=== PATIENT | male | born 1965 | race Caucasian/White ===

== ENCOUNTER 2019-01-11 06:46 | Inpatient (IN) ==
--- NOTE | 2019-01-10 14:54 | Anesthesia Evaluation PreOp ---
Date of Encounter: 01/11/19 Time of Encounter: 07:59 - Past History Planned Operation: CABG Cardiac History: Angina, HTN, Hyperlipidemia, Cardiac Stent (x2), Other (CAD) Pulmonary History: Denies Any Significant HX DEMURRAGE CLERK History: Denies Any Significant HX Other Medical History: Denies Any Significant HX Anesthesia History: No Prior Anesthetic Complications, Past Anesthesia (right knee and shoulder) Alcohol Use: occasionally, recent Drug use: none Medications and Allergies Atorvastatin Calcium [Lipitor] 80 mg PO HS #30 tab 07/14/16 [Rx] Lisinopril [Zestril] 40 mg PO DAILY 07/14/16 [History] Metoprolol Succinate [Toprol Xl] 25 mg PO DAILY 08/05/17 [History] Aspirin 81 mg PO DAILY #30 tab.chew 01/03/19 [Rx] hydroCHLOROthiazide [Hydrochlorothiazide] 25 mg PO DAILY 01/03/19 [History] Allergy/AdvReac Type Severity Reaction Status Date / Time codeine AdvReac Nausea Verified 08/05/17 10:37 - Meds/Allergy Pre-op Review Medications Reviewed: Yes Allergies Reviewed: Yes Beta Blockers on Current Med List: Yes If Beta Blockers taken, Date/Time (Last Dose taken): today 0545 Anesthesia Results - Labs Laboratory Tests 01/02/19 01/02/19 13:11 13:11 Hgb 14.9 Hct 42.9 Plt Count 243 Sodium 137 Potassium 3.7 BUN 17 Creatinine 1.15 - Imaging Additional studies: cath: Indications: Abnormal Test - Stress Other- Abnormal Test- Stress Impressions: There is severe 3 vessel disease seen. There is a previous stent in mid RCA with in-stent stenosis that was not intervened on. The left ventricle is Normal and has normal contractility EF 55%. Recommendations: Optimal medical therapy of patient's disease. Aggressive risk factor modification. Suggest patient have elective coronary artery bypass surgery. LV Ventriculography Ejection Method: LV Gram Ejection Fraction: 55% Wall Motion: RYAN Anterobasal Normal Anterolateral Normal Apical: Normal Inferoapical Normal Inferobasal Normal Coronary Dominance: right Lesion Findings/Interventions * Left Main Coronary Artery The LMCA is angiographically free of disease. * Left Anterior Descending There is a 60% stenosis in the Proximal LAD. The lesion has a BETSY flow of 3. There is a 70% stenosis in the Mid LAD. The lesion has a BETSY flow of 3. There is a 80-90% stenosis in the 1st Diagonal. The lesion has a BETSY flow of 3. Distal LAD with severe disease and right to left collaterals * Circumflex There is a 60-70% stenosis in the Proximal Circumflex. The lesion has a BETSY flow of 3. * Right Coronary Artery There is a 70% stenosis in the Mid RCA. The lesion has a BETSY flow of 3. There is a 99% stenosis in the Right PDA. The lesion has a BETSY flow of 2. Complications: None, None, None Contrast: Isovue 44ml Procedure Summary: After informed consent was obtained, patient was brought back to the cardiac catheterization laboratory, prepped and draped in the usual sterile fashion. Timeout was observed verifying patient and procedure. The patient was given moderate IV sedation (see medication list) by a dedicated nurse under my [id number] supervision using physiologic monitoring for a total intra service time of 24 minutes. Local anesthesia was achieved. Using standard technique, arterial access was obtained and sheath placed. Under fluoroscopic guidance, over guidewire, catheters were advanced and engaged the coronary ostia and coronary angiograms obtained in multiple views. Catheter was placed across the aortic valve and pressures were obtained. Equipment was removed, procedure concluded and patient was discharged out of the labor relations director in stable condition. Closure Device: Manual Compression Procedural Medications Time Medication Dose Units Method Given By 09:14 AM Oxygen 2 L/min nasal cannula Mando Unger RN 09:14 AM Versed 2 mg Intravenous Mando Unger RN 09:14 AM Fentanyl 50 mcg Intravenous Mando Unger RN 09:21 AM Lidocaine 2% 0.5 ml Subcutaneous Lalo Mauricio MD, FACC 09:21 AM Versed 1 mg Intravenous Mando Unger RN 09:21 AM Fentanyl 25 mcg Intravenous Mando Unger RN 09:28 AM Heparin 4000 units Nitroglycerin 200 mcg Verapamil 2.5 mg Intraarterial Lalo Mauricio MD, FACC Hemodynamics: Pressures Site Systolic/ A Wave Diastolic/ V Wave End Diastolic/ Mean HR LV 81 13 21 88 LV 112 18 22 134 AO 89 23 49 85 AO 110 90 99 80 AO 109 85 97 79 Anesthesia Exam Selected Entries 01/11/19 07:15 Temperature 97.6 F Pulse Rate 86 Respiratory Rate 18 Blood Pressure 154/85 O2 Sat by Pulse Oximetry 96 Weight: 103kg NPO (# of Hours): 8 - HEENT Pupil (Motor): EOMI Mallampati: II Teeth: Normal Oral Opening: Greater than 3 - DEMURRAGE CLERK LOC: Oriented DEMURRAGE CLERK Motor: Normal RUE, Normal LUE, Normal RLE, Normal LLE, Normal Face DEMURRAGE CLERK Sensory: Normal: RUE, LUE, RLE, LLE, Face - Cardiac Rhythm: Regular Murmur: None - Pulmonary Breath Sounds: bilateral Clear Respiratory Effort: Symmetrical Anesthesia Assess/Plan ASA Score: 3 Level of consciousness: Cooperative, Oriented Anesthetic Plan: General Monitoring Plan: Standard Monitors, A-Line, PAC, ALFIE Recovery Plan: ICU (agrees to GA, lines, ALFIE and blood products)
[~2019-01-11 06:46] MED LIST: *HR* Etomidate 20 MG/10 ML AMPUL IVP ONE; *HR* FentaNYL (PF) 1,000 MCG/20 ML VIAL ONE; *HR* Midazolam HCl 5 MG/5 ML VIAL IVP ONE; *HR* PHENYLEPHRINE 1,000 MCG/10 ML SYRINGE IVP ONE; *HR* Rocuronium Bromide 50 MG/5 ML VIAL ONE; Calcium Gluconate 1,000 MG/10 ML VIAL ONE; Famotidine 20 MG/2 ML VIAL ONE; NiCARdipine 2.5 MG/10 ML Syringe IVPB ONE; Nitroglycerin 25 MG/250 ML INFUS..BTL IVC ONE; Protamine Sulfate 250 MG/25 ML VIAL IVP ONE; Tranexamic Acid 1,000 MG/10 ML VIAL ONE
[2019-01-11] MEDS ORDERED: CeFAZolin Syr 2,000MG/20 ML 2,000 MG/20 ML SYRINGE IVPB ONE (07:02)
[2019-01-11] MEDS ORDERED: Balanced Salt Irrig Soln. IR ONE (07:13)
--- NOTE | 2019-01-11 07:14 | History & Physical Report ---
Date of Encounter: 01/11/19 Time of Encounter: 07:12 24 Hour HP Update - Instructions Instructions: If the History and Physical is less than 30 days old and was completed prior to A.M. admission and or procedure and has NOT been updated on calendar day of procedure please complete this update prior to performing procedure. - Update Patient reports changes in Medical Condition: No Changes in examination, assessment, or condition: No Changes in Medication: No Preop tests/diagnostics Reviewed: Yes Pre-Op MRSA Screen: Negative Surgery Remains Indicated: Yes Consent for Planned Operative Procedure(s) Verified: Yes - Pre-Operative Checklist Preoperative Checklist Indicated: No Prophylactic Antibiotic Ordered: Yes Home Medications Include Beta Wing: Yes Beta Wing Taken Today (Day of Surgery): Yes Beta Wing Taken Yesterday (Day Prior to Surgery): Yes Is VTE Prophylaxis Indicated?: NO
[2019-01-11] MEDS ORDERED: Ringers Solution, Lactated 1,000 ML IVC SCH (07:15)
[2019-01-11] MEDS ORDERED: Chlorhexidine Rinse 15 ML MOUTHWASH MM ONE (07:30)
[2019-01-11] MEDS ORDERED: Norepinephrine 4 MG in D5% in Water 250 ML IVC PRN (08:15)
[2019-01-11] MEDS ORDERED: Heparin 15,000 UNIT in 0.9 % Sodium Chloride 500 ML IV ONE (08:15)
[2019-01-11] MEDS ORDERED: Dextrose 50 % in Water (Vial) 30 ML, Sodium Bicarbonate 20 MEQ, Potassium Chloride 15 M... TH ONE (08:15)
[2019-01-11] MEDS ORDERED: Dextrose 50 % in Water (Vial) 30 ML, Sodium Bicarbonate 20 MEQ, Lidocaine 1% 5 ML, Insu... TH ONE ×3 (08:15)
[2019-01-11] MEDS ORDERED: Insulin Human Regular 100 UNIT in 0.9 % Sodium Chloride 100 ML IV PRN (08:15)
[2019-01-11 08:40] LABS: ABG Base Excess 0 mEq/L (-2 to 3); ABG Chloride 102 mEq/L (98-107); ABG Glucose 132 mg/dL (60-95); ABG HCO3 26 mEq/L (21-27); ABG Ionized Calcium 1.22 mmol/L (1.15-1.35); ABG Oxygen Saturation 99 % (95-98); ABG PCO2 46 mmHg (35-45); ABG PH 7.36 pH Units (7.32-7.45); ABG PO2 156 mmHg (85-104); ABG TCO2 27 mEq/L (20-26)
--- NOTE | 2019-01-11 09:33 | Anesthesia Procedures ---
Date of Encounter: 01/11/19 Time of Encounter: 08:30 Procedures: Anesthesia - Arterial Line Consent obtained: written consent Time out performed: Yes Sedation: Versed (mg): 2 Sedation: Fentanyl (mcg): 100 Supplemental Oxygen via Nasal Cannula (L/min): 2 Local Anesthetic: Lidocaine 1% Amount of Anesthetic used (mls): 1 Size (Gauge): 20 Length (inches): 5 Technique Used: sterile prep, guide wire technique, direct puncture technique Post-Procedure: line taped into place, dry sterile dressing placed Patient tolerated procedure: well, no complications Complications: none Site: Radial L - Central Line Placement Right IJ Consent obtained: written consent Time out performed: Yes Patient placed on monitor/pulse ox: Yes prep: mask, gown, gloves Central line prep: Chlorhexidine scrub, sterile drapes applied Ultrasound used for placement: Yes Technique: Seldinger Lumen Inserted: Introducer Size / Length: 9 Fr / 10 cm Post procedure: sutured in place, good blood return, all ports aspirated, flushed, capped, sterile dressing applied Patient tolerated procedure: well, no complications Complications: none Comments: introducer placed easily. [place] placed easily without arrythmias, wedge approx 58cm
[2019-01-11] MEDS ORDERED: Tranexamic Acid 1,000 MG/10 ML VIAL ONE (09:54)
[2019-01-11] MEDS ORDERED: *HR* Heparin 10,000 UNIT/10 ML VIAL IV ONE (10:10)
[2019-01-11] MEDS ORDERED: Albumin Human 25% 25 GM/100 ML IV.SOLN IV ONE (10:10)
[2019-01-11] MEDS ORDERED: *HR* Phenylephrine 10 MG/ML VIAL IVC ONE (10:10)
[2019-01-11] MEDS ORDERED: Lidocaine 2% Syringe 100 MG/5 ML IV ONE (10:10)
[2019-01-11] MEDS ORDERED: Mannitol 25% vial 12.5 GM/50 ML VIAL IVP ONE (10:10)
[2019-01-11] MEDS ORDERED: *HR* Magnesium Sulfate 2 GM/50 ML PIGGYBACK IVPB ONE (10:10)
[2019-01-11] MEDS ORDERED: Tranexamic Acid 1,000 MG/10 ML VIAL IVPB ONE (10:10)
[2019-01-11 10:28] LABS: ABG Base Excess -6 mEq/L (-2 to 3); ABG Chloride 111 mEq/L (98-107); ABG Glucose 213 mg/dL (60-95); ABG HCO3 19 mEq/L (21-27); ABG Oxygen Saturation 99 % (95-98); ABG PCO2 38 mmHg (35-45); ABG PH 7.32 pH Units (7.32-7.45); ABG PO2 148 mmHg (85-104); ABG TCO2 21 mEq/L (20-26)
[2019-01-11 10:37] LABS: ABG Base Excess 0 mEq/L (-2 to 3); ABG Chloride 100 mEq/L (98-107); ABG Glucose 214 mg/dL (60-95); ABG HCO3 26 mEq/L (21-27); ABG Ionized Calcium 1.04 mmol/L (1.15-1.35); ABG PCO2 43 mmHg (35-45); ABG PH 7.38 pH Units (7.32-7.45); ABG PO2 > 630 mmHg (85-104); ABG TCO2 27 mEq/L (20-26)
[2019-01-11] MEDS ORDERED: *HR* Rocuronium Bromide 50 MG/5 ML VIAL ONE ×2 (10:55→12:31)
[2019-01-11 11:03] LABS: ABG Base Excess -1 mEq/L (-2 to 3); ABG Chloride 99 mEq/L (98-107); ABG Glucose 206 mg/dL (60-95); ABG HCO3 25 mEq/L (21-27); ABG Ionized Calcium 1.08 mmol/L (1.15-1.35); ABG Oxygen Saturation 100 % (95-98); ABG PCO2 42 mmHg (35-45); ABG PH 7.38 pH Units (7.32-7.45); ABG PO2 553 mmHg (85-104); ABG TCO2 26 mEq/L (20-26)
[2019-01-11 11:43] LABS: ABG Base Excess 1 mEq/L (-2 to 3); ABG Chloride 100 mEq/L (98-107); ABG Glucose 155 mg/dL (60-95); ABG HCO3 25 mEq/L (21-27); ABG Ionized Calcium 1.05 mmol/L (1.15-1.35); ABG Oxygen Saturation 100 % (95-98); ABG PCO2 39 mmHg (35-45); ABG PH 7.42 pH Units (7.32-7.45); ABG PO2 578 mmHg (85-104); ABG TCO2 26 mEq/L (20-26)
[2019-01-11] MEDS ORDERED: Albumin Human 5% 50.0 GM/1,000 ML VIAL ONE (12:06)
[2019-01-11] MEDS ORDERED: *HR* PHENYLEPHRINE 1,000 MCG/10 ML SYRINGE IVP ONE (12:07)
[2019-01-11 12:22] LABS: ABG Base Excess -4 mEq/L (-2 to 3); ABG Chloride 103 mEq/L (98-107); ABG Glucose 138 mg/dL (60-95); ABG HCO3 22 mEq/L (21-27); ABG Ionized Calcium 1.28 mmol/L (1.15-1.35); ABG Oxygen Saturation 98 % (95-98); ABG PCO2 38 mmHg (35-45); ABG PH 7.36 pH Units (7.32-7.45); ABG PO2 103 mmHg (85-104); ABG TCO2 23 mEq/L (20-26)
[2019-01-11] MEDS ORDERED: *HR* Midazolam HCl 5 MG/5 ML VIAL IVP ONE (12:31)
[2019-01-11] MEDS ORDERED: *HR* FentaNYL (PF) 250 MCG/5 ML VIAL ONE (12:31)
--- NOTE | 2019-01-11 13:24 | Operative Note ---
Date of procedure: 01/11/19 Pre-op diagnosis: CAD Post-op diagnosis: same Procedure: 1. CABG5 (PANCHAL to D1, SVG to LAD, SVG to OM1, sequential SVG to PDA and PLV). 2. PDA endarterectomy. 3. Endoscopic vein harvesting, greater saphenous vein from left lower extremity. Implants: None. Complications: None. Anesthesia: GETA Surgeon: Walker Valenzuela Was there an assistant account executive present: Yes Resume Specialist: Rock Li Estimated blood loss (cc): 500 Specimen: PDA plaque Condition: stable Disposition: ICU Procedure in Detail: INDICATIONS FOR OPERATION: The patient is a 53 year old hypertensive man with known CAD and hypercholesterolemia. His cardiac history dates back to 07/14/2016 at which time he underwent cardiac catheterization with RCA PCI. At that time he had 2 stents placed in the mid RCA for a chronic total occlusion of this vessel. He did well until the last several weeks when he began experiencing exertional, nonradiating substernal chest discomfort and generalized fatigue. He saw Dr. Jamshid Cherry for his annual cardiac evaluation and was recommended for further cardiac workup. A nuclear stress test revealed exercise ECG findings consistent with ischemia, but no perfusion defect was noted on the nuclear portion. A transthoracic echocardiogram revealed an LVEF 65% with mild concentric left ventricular hypertrophy. No significant valvular dysfunction was noted. Cardi ac catheterization performed today revealed severe 3 vessel CAD and an LVEF 60%. In particular, the patient has a 70-80% proximal LAD lesion, an 80% mid LAD lesion, and severe diffuse disease in his distal LAD. The patient also has an 80-90% proximal D1 lesion, a 70% proximal LCx lesion, a 70% mid RCA in-stent restenosis, and a severely diseased mid PDA. The patient has been recommended for CABG. FINDINGS AT OPERATION: The aorta was of normal caliber and slightly thickened. No overt calcification was noted. The coronary arteries measure proximal 1.5-2 mm in diameter and had moderate to severe distal disease, particularly the LAD and PDA. The greater saphenous vein was harvested endoscopically from the left lower extremity from the mid calf to the groin and was of good quality. The total bypass time was 110 minutes, cross-clamp time 62 minutes, intentional hypothermia of 35 degrees centigrade. DESCRIPTION OF OPERATION: After obtaining informed operative consent from the patient, he was taken to the operating room where a satisfactory general endotracheal anesthetic was induced. Appropriate monitor lines were placed, and the patient's chest, abdomen, and lower extremities were prepped and draped in a sterile fashion. The greater saphenous vein was initially sought for in the right lower extremity however no usable vein could be identified. The greater saphenous vein was then harvested endoscopically from the left lower extremity from the mid calf to the groin. The vein was removed, distended, and found to be of good quality. The simultaneous tissue and skin edges were reapproximated running Vicryl sutures. Simultaneously, a standard median sternotomy incision was made and the sternum divided. The PANCHAL was taken down from its bed and side branches divided between hemoclips. The sternum was and the pericardium opened and reflected laterally. The patient was prepared for cannulation by placing pursestring sutures the distal ascending aorta, mid-ascending ascending aorta, and right atrial appendage. The patient was heparinized and when the ACT was greater than 200 seconds, distal ascending aorta was cannulated followed by placement of a dual stage venous cannula through the right atrial appendage and into the inferior vena cava. A stab-in antegrade metabolic cannula was placed in the mid-ascending aorta. The patient was placed on bypass and the temperature allowed to drift to 35 degrees centigrade. The distal targets were identified and the LAD was noted to have severe calcification proximally and severe calcification and disease distally. The mid section was patent however had limited distribution. The D1 branch was a larger and less diseased vessel and it was determined that the elevated PANCHAL was be placed to the D1 branch. The aorta was crossclamped and the patient received 700 mL of cold antegrade crystalloid cardioplegia through the aortic root and the patient's heart obtained rapid diastolic arrest. The LAD was opened in the midportion and the vein was anastomosed in an end-to-side fashion using running 7-0 Prolene suture. The anastomosis found to be hemostatic. This processes and repeated for the RPLB. The PDA was opened with a Hamilton blade and a large amount of plaque was encountered. This vessel required endarterectomy in order to establish a patent distal lumen. The endarterectomy specimen tapered nicely both proximally and distally and a 1 mm Proplast in both directions without encountering obstructions. The vein was opened in a longitudinal fashion so the [id number] anastomosis could be completed using running 7-0 Prolene suture. The anastomosis found to be hemostatic and the patient received a notice of cold antegrade crystalloid cardioplegia through the aortic root. The OM1 branch was opened with a Hamilton blade and the vein was anastomosed in an end-to-side fashion using running 7-0 Prolene suture. The anastomosis found to be hemostatic. The D1 branch was opened with a Hamilton blade and the PANCHAL was anastomosed in end-to-side fashion using running 7-0 Prolene suture. The anastomosis was found to be hemostatic and the mammary pedicle was tacked to the epicardium using interrupted 5-0 silk suture. Rewarming was begun during this anastomosis. Aortic cross-clamp was released and the heart distended. The veins were measured and cut appropriate lengths. A partial occluding clamps placed across the mid ascending aorta and the antegrade cardioplegia cannula was removed. Two additional aortotomy sites were made 11 blade, and all 3 sites were enlarged with a 4 mm punch. The veins were anastomosed in an end-to-side fashion to the aorta using a running 5-0 Prolene suture. The vein grafts were occluded with bulldog clamps and de-aired the 25-gauge needle prior to removing the partial occluding clamp. The proximal and distal anastomoses were found to be hemostatic and the proximal anastomoses were marked with radiopaque loops. Two right ventricular temporary cardiac pacing lesion placed, and 3 chest suture placed, 2 in the mediastinum once the left pleural space. During rewarming the patient's heart regained normal sinus rhythm spontaneously. When the patient's systemic temperature reached 36 degrees centigrade he was ventilated and received volume. He was weaned from bypass required no inotropic support. Protamine was administered and the aortic and venous cannulae were removed. The pursestring sutures were secured. The pericardium was loosely approximated in midline using interrupted 0 silk suture and the sternum was reapproximated using double sternal wires. The pectoralis major fascia, rectus abdominis fascia, subcutaneous tissue, and skin edges were reapproximated running Vicryl sutures. Sterile dressings were applied. The patient was transferred to the ICU in satisfactory postoperative condition. There were no intraoperative complications, and the instrument and sponge count were correct at end of operation. The needle count was off by one 7-0 Prolene needle and a chest x-ray was performed. This revealed no evidence of retained objects. - Open Heart Detail SHERRI (Internal Mammary Artery) Usage: Yes Cardiopulmonary Bypass Time (mins): 110 Aortic Cross Clamp Time (mins): 62 Intentional Hypothermia Temperature (C.): 35
[2019-01-11] MEDS ORDERED: Calcium Gluconate 1gm/50mL 1 GM/50 ML BAG IVPB PRN (13:25)
[2019-01-11] MEDS ORDERED: Acetaminophen 325 MG TABLET PO PRN (13:25)
[2019-01-11] MEDS ORDERED: Naloxone 0.4 MG/ML INJ IVP PRN (13:25)
[2019-01-11] MEDS ORDERED: Insulin Regular, Human 100 UNIT/ML IV PRN (13:25)
[2019-01-11] MEDS ORDERED: Ondansetron 4 MG/2 ML VIAL IVP PRN (13:25)
[2019-01-11] MEDS ORDERED: Acetaminophen 650 MG RECTAL SUPP RC PRN (13:25)
[2019-01-11] MEDS ORDERED: Potassium Chloride 40 MEQ/200 ML BAG IVPB PRN (13:25)
[2019-01-11] MEDS ORDERED: *HR* Dextrose 50 % in Water (Syg) 50 ML SYRINGE IVP PRN (13:25)
[2019-01-11 13:28] LABS: ABG Base Excess -1 mEq/L (-2 to 3); ABG HCO3 24 mEq/L (21-27); ABG Oxygen Saturation 100 % (95-98); ABG PCO2 42 mmHg (35-45); ABG PH 7.37 pH Units (7.32-7.45); ABG PO2 194 mmHg (85-104); ABG TCO2 26 mEq/L (20-26); Blood Gas Modality VC; Blood Gas PEEP 5 cm H2O; Blood Gas VT 600 cc
[2019-01-11] MEDS ORDERED: Insulin Human Regular 100 UNIT in 0.9 % Sodium Chloride 100 ML IVC SCH (13:30)
[2019-01-11] MEDS ORDERED: Norepinephrine 4 MG in D5% in Water 250 ML IVC SCH (13:30)
[2019-01-11] MEDS ORDERED: 0.9 % Sodium Chloride w KCl 20 MEQ/1,000 ML MLS IVC SCH (13:30)
[2019-01-11 13:41] LABS: Basophils % 0.2 %; Eosinophils % 0.7 %; Hematocrit 31.2 % (37.5-50.1); Immature Granulocytes % 0.9 % (0-4); Lymphocytes # 2.9 K/mcL (0.6-4.6); Lymphocytes % 14.1 %; Mean Corpuscular HGB Conc 35.3 g/dL (31.6-35.5); Mean Corpuscular Hemoglobin 31.6 pg (28.0-33.3); Mean Corpuscular Volume 89.7 fL (83.0-100.0); Mean Platelet Volume 9.2 fL (9.4-12.4); Monocytes # 1.1 K/mcL (0.0-1.3); Monocytes % 5.6 %; Neutrophils # 15.9 K/mcL (1.6-8.9); Platelet Count 142 K/mcL (140-400); Red Blood Count 3.48 M/mcL (4.19-5.50); Red Cell Distribution Width 11.8 % (11.5-14.5); Segmented Neutrophils % 78.5 %
[2019-01-11 13:43] LABS: Eosinophils # 0.1 K/mcL (0.0-0.6); White Blood Count 20.3 K/mcL (4.3-11.1)
[2019-01-11] MEDS ORDERED: Pantoprazole 40 MG VIAL IVP SCH (13:45)
[2019-01-11 13:53] LABS: INR 1.3
[2019-01-11 13:56] LABS: Activated Partial Thrombo Time 32.7 Seconds (26.0-36.0); BUN/Creatinine Ratio 15 (6-26); Blood Urea Nitrogen 16 mg/dL (6-20); Calcium 8.8 mg/dL (8.6-10.3); Carbon Dioxide 26 mEq/L (23-29); Chloride 105 mEq/L (98-107); Glucose 112 mg/dL (70-105); Magnesium 2.6 mg/dL (1.6-2.6); Osmolality,Calculated 292 (280-300); Potassium 3.8 mEq/L (3.5-5.1); Sodium 140 mEq/L (136-145); eGFR For African Americans > 60 (> 60); eGFR For Non-African Americans > 60 (> 60)
[2019-01-11 13:59] LABS: Prothrombin Time 14.9 Seconds (9.4-12.1)
[2019-01-11] MEDS: *HR* FentaNYL (PF) 100 MCG/2 ML VIAL IVP PRN ×2 (14:34→19:46)
[2019-01-11] MEDS: Nitroglycerin 25 MG/250 ML INFUS..BTL IVC SCH ×2 (14:38→23:12)
--- NOTE | 2019-01-11 14:50 | Electrocardiograph Report ---
[place] [address] Test Date: 2019-01-11 Pat Name: Guillermo Varghese Department: 109 Room: 02 Gender: M Admin Dir: MINE : 1965 Requested By: Marga Valenzuela Order Number: [id number] Reading MD: Jamshid Cherry Measurements Intervals [place] Rate: 69 P: 13 FL: 185 QRS: 17 QRSD: 96 T: 33 QT: 373 QTc: 392 Interpretive Statements SINUS RHYTHM PROBABLE INFERIOR MYOCARDIAL INFARCTION, PROBABLY OLD Electronically Signed On 01-11-2019 14:49:15 EDT by Jamshid Cherry
[2019-01-11] MEDS: *HR* OxyCODONE/APAP 5/325 TABLET PO PRN ×2 (14:54→21:58)
[2019-01-11] MEDS: niCARdipine 20 MG in 0.9 % Sodium Chloride 192 ML IVC SCH ×3 (14:55→19:47)
[2019-01-11] MEDS: Chlorhexidine Rinse 15 ML MOUTHWASH MM SCH ×2 (14:55→19:47)
[2019-01-11] MEDS ORDERED: 0.9 % Sodium Chloride 250 ML ONE (15:45)
[2019-01-11] MEDS: Ketorolac 15 MG/ML VIAL IVP SCH ×2 (16:16→23:12)
[2019-01-11] MEDS: Metoclopramide 10 MG/2 ML VIAL IVP SCH ×2 (16:16→23:12)
[2019-01-11 16:27] LABS: ABG Base Excess -2 mEq/L (-2 to 3); ABG HCO3 24 mEq/L (21-27); ABG Oxygen Saturation 98 % (95-98); ABG PCO2 45 mmHg (35-45); ABG PH 7.34 pH Units (7.32-7.45); ABG PO2 109 mmHg (85-104); ABG TCO2 26 mEq/L (20-26); Blood Gas Modality CPAP/PS; Blood Gas PEEP 5 cm H2O
[2019-01-11 17:57] LABS: ABG Base Excess -1 mEq/L (-2 to 3); ABG HCO3 24 mEq/L (21-27); ABG Oxygen Saturation 95 % (95-98); ABG PCO2 42 mmHg (35-45); ABG PH 7.37 pH Units (7.32-7.45); ABG PO2 78 mmHg (85-104); ABG TCO2 26 mEq/L (20-26)
[2019-01-12] MEDS: niCARdipine 20 MG in 0.9 % Sodium Chloride 192 ML IVC SCH ×2 (00:50→02:40)
[2019-01-12] MEDS: Nitroglycerin 25 MG/250 ML INFUS..BTL IVC SCH (02:41)
[2019-01-12] MEDS: *HR* OxyCODONE/APAP 5/325 TABLET PO PRN ×4 (03:08→21:07)
[2019-01-12 03:25] LABS: Basophils % 0.3 %; Eosinophils % 0.1 %; Hematocrit 27.4 % (37.5-50.1); Immature Granulocytes % 0.5 % (0-4); Lymphocytes # 1.1 K/mcL (0.6-4.6); Lymphocytes % 10.7 %; Mean Corpuscular HGB Conc 34.3 g/dL (31.6-35.5); Mean Corpuscular Hemoglobin 31.6 pg (28.0-33.3); Mean Corpuscular Volume 92.3 fL (83.0-100.0); Mean Platelet Volume 9.3 fL (9.4-12.4); Monocytes # 1.1 K/mcL (0.0-1.3); Monocytes % 10.6 %; Neutrophils # 7.8 K/mcL (1.6-8.9); Platelet Count 115 K/mcL (140-400); Red Blood Count 2.97 M/mcL (4.19-5.50); Segmented Neutrophils % 77.8 %
[2019-01-12 03:26] LABS: Hemoglobin 9.4 g/dL (12.9-16.9)
[2019-01-12 03:33] LABS: INR 1.2; Prothrombin Time 13.2 Seconds (9.4-12.1)
[2019-01-12 03:35] LABS: Activated Partial Thrombo Time 28.9 Seconds (26.0-36.0)
[2019-01-12 03:44] LABS: BUN/Creatinine Ratio 14 (6-26); Blood Urea Nitrogen 17 mg/dL (6-20); Carbon Dioxide 23 mEq/L (23-29); Chloride 106 mEq/L (98-107); Glucose 118 mg/dL (70-105); Osmolality,Calculated 283 (280-300); Potassium 4.2 mEq/L (3.5-5.1); Sodium 135 mEq/L (136-145); eGFR For African Americans > 60 (> 60); eGFR For Non-African Americans > 60 (> 60)
[2019-01-12] MEDS: Ketorolac 15 MG/ML VIAL IVP SCH ×4 (05:09→23:32)
[2019-01-12] MEDS: Metoclopramide 10 MG/2 ML VIAL IVP SCH ×3 (05:10→23:32)
[2019-01-12] MEDS: *HR* FentaNYL (PF) 100 MCG/2 ML VIAL IVP PRN (05:27)
[2019-01-12] MEDS ORDERED: Furosemide 20 MG TABLET PO SCH (06:00)
--- NOTE | 2019-01-12 06:50 | Cardiothoracic Progress Note ---
Date of Encounter: 01/12/19 Time of Encounter: 06:45 - Assessment and plan (1) CAD (coronary artery disease) Current Visit: No Status: Acute The patient remained hemodynamic stable overnight. He is currently extubated and breathing comfortably. He was able to sit in a chair last night and again this morning without difficulty. The arterial line, Rodriguez catheter, and [place]- [place] catheter be removed. The patient be transferred to the stepdown unit w hen a bed is available. The assessment and plan as outlined above was discussed with the patient and/or family members who expressed understanding and agreement. All questions were answered. Qualifiers: Coronary Disease-Associated Artery/Lesion type: [place] artery [place] vs. transplanted heart: [place] heart Associated angina: with stable angina Qualified Code(s): I25.118 - Atherosclerotic heart disease of [place] coronary artery with other forms of angina pectoris - Subjective Procedure(s) Performed: POD#1 S/P CABG5, PDA endarterectomy Interval history: The patient remained hemodynamically stable overnight. He was extubated yesterday afternoon and is breathing comfortably. He is sitting in a chair and has no complaints. Vital Signs, Last 4 Hours Pulse Resp BP Pulse Ox 01/12/19 06:00 90 16 137/61 97 01/12/19 05:00 88 14 126/57 97 01/12/19 04:49 14 97 01/12/19 04:00 88 14 116/50 96 01/12/19 03:02 88 01/12/19 03:00 88 12 122/54 96 Oxgyen Flow Rate Oxygen Flow Rate (LPM) 2 Clinical Data, last 8 Hours Output, Chest Tube Drainage 10 Amount [#1] Output, Chest Tube Drainage 20 Amount [#1] Output, Chest Tube Drainage 0 Amount [#1] Output, Chest Tube Drainage 25 Amount [#1] Output, Chest Tube Drainage 25 Amount [#1] Output, Chest Tube Drainage 20 Amount [#1] Output, Chest Tube Drainage 20 Amount [#1] Output, Chest Tube Drainage 40 Amount [#1] Output, Chest Tube Drainage 0 Amount [#2] Output, Chest Tube Drainage 0 Amount [#2] Output, Chest Tube Drainage 0 Amount [#2] Output, Chest Tube Drainage 15 Amount [#2] Output, Chest Tube Drainage 0 Amount [#2] Output, Chest Tube Drainage 0 Amount [#2] Output, Chest Tube Drainage 0 Amount [#2] Output, Chest Tube Drainage 15 Amount [#2] Weight 01/10/19 01/11/19 01/12/19 23:59 23:59 23:59 Weight 103.419 kg - Physical Examination General: Conversant, No Apparent Distress Neck: No JVD, Normal carotid pulses Cardiac: Reg Rate and Rhythm, Normal S1 and S2, No Murmur Incision: No signs of infection, Dry/intact dressing Sternum: Stable Chest tubes: Minimal drainage, Other (No air leak) Pacing Wires: In place Lungs: Normal Breath Sounds, No Wheeze, Rales, Rhonchi Neuro: Alert and responsive, No focal deficits noted Vascular: Normal capillary refill Extremities: No Clubbing, No Cyanosis, No Edema, Normal Pulses - Labs 01/12/19 03:15 01/12/19 03:15 Lab Results, Last 24 hours 01/11/19 01/11/19 01/11/19 13:25 13:25 13:25 WBC 20.3 H Hgb 11.0 L Hct 31.2 L Plt Count 142 INR 1.3 APTT 32.7 Sodium 140 Potassium 3.8 Chloride 105 Carbon Dioxide 26 BUN 16 Creatinine 1.10 Glucose 112 H Calcium 8.8 Magnesium 2.6 01/12/19 01/12/19 01/12/19 03:15 03:15 03:15 WBC 10.0 D Hgb 9.4 L D Hct 27.4 L Plt Count 115 L INR 1.2 APTT 28.9 Sodium 135 L Potassium 4.2 Chloride 106 Carbon Dioxide 23 BUN 17 Creatinine 1.24 Glucose 118 H Calcium 8.0 L Magnesium 2.0 - Imaging Chest Xray: image reviewed (No pneumothorax. Minimal atelectasis/infiltrates.) - VTE Reasons for not Prescribing Prophylaxis: Not indicated-Anticoagulated or INR therapeutic Documentation of Mechanical Device: Graduated compression elastic hosiery Consult Discharge Plan - Plan Referrals: Medhat Valencia MD [Primary Care Provider] -
[2019-01-12] MEDS ORDERED: Aspirin Enteric Coated 81 MG Tablet PO SCH (09:00)
[2019-01-12] MEDS ORDERED: Naloxone 0.4 MG/ML INJ IVP PRN (12:46)
[2019-01-12] MEDS ORDERED: D5% in Water 1,000 ML IVC PRN (12:46)
[2019-01-12] MEDS ORDERED: *HR* Dextrose 50 % in Water (Syg) 50 ML SYRINGE IVP PRN (12:46)
[2019-01-12] MEDS ORDERED: *HR* FentaNYL (PF) 100 MCG/2 ML VIAL IVP PRN (12:46)
[2019-01-12] MEDS ORDERED: Insulin Human Regular 100 UNIT in 0.9 % Sodium Chloride 100 ML IVC SCH (12:46)
[2019-01-12] MEDS ORDERED: Dextrose Gel 15 GM/37.5 ML TUBE PO PRN ×2 (12:46)
[2019-01-12] MEDS ORDERED: Insulin Regular, Human 100 UNIT/ML IV PRN (12:46)
[2019-01-12] MEDS ORDERED: Ondansetron 4 MG/2 ML VIAL IVP PRN (12:46)
[2019-01-12] MEDS ORDERED: Acetaminophen 325 MG TABLET PO PRN (12:46)
[2019-01-12] MEDS: *HR* Heparin 5,000 UNIT/ML VIAL SQ SCH ×2 (16:44→20:25)
[2019-01-12] MEDS: Insulin LISPRO 300 UNITS/3 ML VIAL SQ SCH ×3 (19:27→21:01)
[2019-01-12] MEDS: Furosemide 20 MG TABLET PO SCH (21:01)
[2019-01-12] MEDS: Docusate Oral Soln 100 MG/10 ML UDC PO SCH (21:01)
[2019-01-12] MEDS: Chlorhexidine Rinse 15 ML MOUTHWASH MM SCH (21:01)
[2019-01-13] MEDS: *HR* OxyCODONE/APAP 5/325 TABLET PO PRN ×5 (01:00→22:10)
[2019-01-13] MEDS: Ketorolac 15 MG/ML VIAL IVP SCH ×4 (04:56→23:21)
[2019-01-13] MEDS: Metoclopramide 10 MG/2 ML VIAL IVP SCH ×4 (04:56→23:21)
[2019-01-13] MEDS: Furosemide 20 MG TABLET PO SCH ×2 (04:57→17:53)
[2019-01-13] MEDS: *HR* Heparin 5,000 UNIT/ML VIAL SQ SCH ×2 (04:58→17:53)
[2019-01-13] MEDS: Insulin LISPRO 300 UNITS/3 ML VIAL SQ SCH ×4 (07:39→20:33)
[2019-01-13] MEDS: Chlorhexidine Rinse 15 ML MOUTHWASH MM SCH ×2 (08:43→21:27)
[2019-01-13] MEDS: Docusate Oral Soln 100 MG/10 ML UDC PO SCH ×2 (08:43→21:27)
[2019-01-13] MEDS: Pantoprazole 40 MG VIAL IVP SCH (08:43)
[2019-01-13] MEDS: Aspirin Enteric Coated 81 MG Tablet PO SCH (08:44)
--- NOTE | 2019-01-13 10:16 | Cardiothoracic Progress Note ---
Date of Encounter: 01/13/19 Time of Encounter: 10:15 - Assessment and plan (1) CAD (coronary artery disease) Current Visit: No Status: Acute The assessment and plan as outlined above was discussed with the patient and/or family members who expressed understanding and agreement. All questions were answered. rounded with nurses. old a line and [place] sites good. continue chest tubes 1 more day. Qualifiers: Coronary Disease-Associated Artery/Lesion type: [place] artery [place] vs. transplanted heart: [place] heart Associated angina: with stable angina Qualified Code(s): I25.118 - Atherosclerotic heart disease of [place] coronary artery with other forms of angina pectoris Vital Signs, Last 4 Hours Temp Pulse Resp BP Pulse Ox 01/13/19 08:00 102 20 117/74 98 01/13/19 07:54 15 98 01/13/19 07:30 98 20 135/80 96 01/13/19 07:10 98.5 F Oxgyen Flow Rate Oxygen Flow Rate (LPM) 2 Clinical Data, last 8 Hours Output, Chest Tube Drainage 50 Amount [#1] Output, Chest Tube Drainage 100 Amount [#1] Output, Chest Tube Drainage 40 Amount [#2] Output, Chest Tube Drainage 25 Amount [#2] Output, Urine Amount 100 Output, Urine Amount 150 Output, Urine Amount 175 Output, Urine Amount 0 Weight 01/11/19 01/12/19 01/13/19 23:59 23:59 23:59 Weight 103.419 kg 112 kg - Physical Examination General: Conversant, No Apparent Distress, Well developed, Well nourished HEENT: Atraumatic, Normocephaly Neck: No JVD Cardiac: Reg Rate and Rhythm, Normal S1 and S2, No Murmur Incision: No signs of infection, Dry/intact dressing Lungs: Normal Breath Sounds Neuro: Alert and responsive, No focal deficits noted, Cranial nerves intact, Motor nerves intact Abdomen: Soft, Non-tender, Other (bs present. flatus today ) Extremities: Normal Pulses, Other (trace edema ) - Labs 01/12/19 03:15 01/12/19 03:15 - VTE Reasons for not Prescribing Prophylaxis: Not indicated-Anticoagulated or INR therapeutic Documentation of Mechanical Device: Graduated compression elastic hosiery Consult Discharge Plan - Plan Referrals: Medhat Valencia MD [Primary Care Provider] -
[2019-01-14] MEDS: *HR* OxyCODONE/APAP 5/325 TABLET PO PRN (05:11)
[2019-01-14] MEDS: Furosemide 20 MG TABLET PO SCH (05:11)
[2019-01-14] MEDS: *HR* Heparin 5,000 UNIT/ML VIAL SQ SCH ×2 (05:12→18:02)
[2019-01-14] MEDS: Ketorolac 15 MG/ML VIAL IVP SCH ×4 (05:12→23:55)
[2019-01-14] MEDS: Metoclopramide 10 MG/2 ML VIAL IVP SCH ×3 (05:12→17:54)
[2019-01-14] MEDS: Chlorhexidine Rinse 15 ML MOUTHWASH MM SCH ×2 (08:36→20:30)
[2019-01-14] MEDS: Pantoprazole 40 MG VIAL IVP SCH (08:36)
[2019-01-14] MEDS: Aspirin Enteric Coated 81 MG Tablet PO SCH (08:38)
[2019-01-14] MEDS: Insulin LISPRO 300 UNITS/3 ML VIAL SQ SCH ×4 (08:38→20:54)
[2019-01-14] MEDS: Docusate Oral Soln 100 MG/10 ML UDC PO SCH ×2 (08:38→20:29)
--- NOTE | 2019-01-14 08:49 | Cardiothoracic Progress Note ---
Date of Encounter: 01/14/19 Time of Encounter: 08:48 - Assessment and plan (1) CAD (coronary artery disease) Current Visit: No Status: Acute The assessment and plan as outlined above was discussed with the patient and/or family members who expressed understanding and agreement. All questions were answered. rounded with nurses. removed chest tubes. stop lasix given cta and no peripheral edema. check bmp in am Qualifiers: Coronary Disease-Associated Artery/Lesion type: [place] artery [place] vs. transplanted heart: [place] heart Associated angina: with stable angina Qualified Code(s): I25.118 - Atherosclerotic heart disease of [place] coronary artery with other forms of angina pectoris Vital Signs, Last 4 Hours Temp Pulse Resp BP Pulse Ox 01/14/19 07:50 16 98 01/14/19 07:40 98.4 F 87 18 125/69 99 Oxgyen Flow Rate Oxygen Flow Rate (LPM) 2 Clinical Data, last 8 Hours Output, Chest Tube Drainage 20 Amount [#1] Output, Chest Tube Drainage 20 Amount [#1] Output, Chest Tube Drainage 10 Amount [#2] Output, Chest Tube Drainage 0 Amount [#2] Weight 01/12/19 01/13/19 01/14/19 23:59 23:59 23:59 Weight 112 kg - Physical Examination General: Conversant, No Apparent Distress, Well developed, Well nourished HEENT: Atraumatic, Normocephaly Cardiac: Reg Rate and Rhythm, Normal S1 and S2, No Murmur Incision: No signs of infection, Dry/intact dressing Chest tubes: Other (outputs down for the last 8 hours ) Lungs: Normal Breath Sounds Neuro: Alert and responsive, No focal deficits noted, Cranial nerves intact Vascular: Normal capillary refill Extremities: No Clubbing, No Edema, Normal Pulses - Labs 01/12/19 03:15 01/12/19 03:15 - VTE Reasons for not Prescribing Prophylaxis: Not indicated-Anticoagulated or INR therapeutic Documentation of Mechanical Device: Graduated compression elastic hosiery Consult Discharge Plan - Plan Referrals: Medhat Valencia MD [Primary Care Provider] -
[2019-01-14] MEDS ORDERED: Amiodarone Premix 360 MG/200 ML BAG IVC ONE (17:24)
[2019-01-14] MEDS ORDERED: Amiodarone Premix 150 MG/100 ML BAG IVPB ONE (17:24)
[2019-01-14] MEDS: Amiodarone Premix 360 MG/200 ML BAG IVC SCH (23:56)
[2019-01-15] MEDS: *HR* Heparin 5,000 UNIT/ML VIAL SQ SCH ×2 (06:04→18:33)
[2019-01-15] MEDS: Ketorolac 15 MG/ML VIAL IVP SCH ×3 (06:04→18:33)
[2019-01-15] MEDS ORDERED: Bisacodyl 10 MG RECTAL SUPPOSITORY RC PRN (07:17)
--- NOTE | 2019-01-15 07:17 | Cardiothoracic Progress Note ---
Date of Encounter: 01/15/19 Time of Encounter: 07:15 - Assessment and plan (1) CAD (coronary artery disease) Current Visit: No Status: Acute The patient remained hemodynamic stable overnight. He has begin ambulating in the hallways without difficulty. He had two episodes of atrial fibrillation/SVT yesterday which converted to normal sinus rhythm with an amiodarone drip. He will continue on this medication until tomorrow and will be transitioned to oral amiodarone. The assessment and plan as outlined above was discussed with the patient and/or family members who expressed understanding and agreement. All questions were answered. Qualifiers: Coronary Disease-Associated Artery/Lesion type: [place] artery [place] vs. transplanted heart: [place] heart Associated angina: with stable angina Qualified Code(s): I25.118 - Atherosclerotic heart disease of [place] coronary artery with other forms of angina pectoris - Subjective Procedure(s) Performed: POD#4 S/P CABG5, PDA endarterectomy Interval history: The patient remained hemodynamically stable overnight. He was able to ambulate in the hallways yesterday without difficulty. He had two episodes of atrial fibrillation/SVT which required treatment with amiodarone. Currently he is in normal sinus rhythm. Vital Signs, Last 4 Hours Temp Pulse Resp BP Pulse Ox 01/15/19 04:32 16 94 01/15/19 04:05 84 01/15/19 03:37 98.6 F 85 19 147/77 95 [place]gyen Flow Rate Oxygen Flow Rate (LPM) 0 Clinical Data, last 8 Hours Output, Urine Amount 250 Output, Urine Amount 200 Output, Urine Amount 350 - Physical Examination General: Conversant, No Apparent Distress Neck: No JVD, Normal carotid pulses Cardiac: Reg Rate and Rhythm, Normal S1 and S2, No Murmur Incision: No signs of infection, Dry/intact dressing Sternum: Stable Pacing Wires: In place Lungs: Normal Breath Sounds, No Wheeze, Rales, Rhonchi Neuro: Alert and responsive, No focal deficits noted Vascular: Normal capillary refill Extremities: No Clubbing, No Cyanosis, No Edema, Normal Pulses - Labs 01/12/19 03:15 01/12/19 03:15 - VTE Reasons for not Prescribing Prophylaxis: Not indicated-Anticoagulated or INR therapeutic Documentation of Mechanical Device: Graduated compression elastic hosiery Consult Discharge Plan - Plan Referrals: Medhat Valencia MD [Primary Care Provider] -
[2019-01-15] MEDS: Insulin LISPRO 300 UNITS/3 ML VIAL SQ SCH ×5 (07:50→20:32)
[2019-01-15] MEDS: Chlorhexidine Rinse 15 ML MOUTHWASH MM SCH ×2 (08:13→20:30)
[2019-01-15] MEDS: Pantoprazole 40 MG VIAL IVP SCH (08:13)
[2019-01-15] MEDS: Aspirin Enteric Coated 81 MG Tablet PO SCH (08:13)
[2019-01-15] MEDS: Docusate Oral Soln 100 MG/10 ML UDC PO SCH ×2 (08:13→20:30)
[2019-01-15 09:46] LABS: BUN/Creatinine Ratio 16 (6-26); Blood Urea Nitrogen 19 mg/dL (6-20); Carbon Dioxide 25 mEq/L (23-29); Glucose 133 mg/dL (70-105); Magnesium 2.5 mg/dL (1.6-2.6); eGFR For African Americans > 60 (> 60); eGFR For Non-African Americans > 60 (> 60)
[2019-01-15 09:59] LABS: Chloride 103 mEq/L (98-107); Osmolality,Calculated 288 (280-300); Potassium 3.4 mEq/L (3.5-5.1); Sodium 137 mEq/L (136-145)
[2019-01-15] MEDS: Amiodarone Premix 360 MG/200 ML BAG IVC SCH (11:58)
--- NOTE | 2019-01-15 12:26 | Electrocardiograph Report ---
[place] [id number] Test Date: 2019-01-14 Pat Name: Guillermo Varghese Department: 110 Room: 2N03 Gender: M Physician Assistant Surgery: : 1965 Requested By: Emery Poon Order Number: [id number] Reading MD: Lalo Mauricio Measurements Intervals [place] Rate: 0 P: [place]: 0 QRS: 0 QRSD: 0 T: 0 QT: 0 QTc: 0 Interpretive Statements ATRIAL FIBRILLATION Electronically Signed On 01-15-2019 12:24:25 EDT by Lalo Mauricio
[2019-01-15] MEDS: *HR* OxyCODONE/APAP 5/325 TABLET PO PRN (20:31)
[2019-01-16] MEDS: Ketorolac 15 MG/ML VIAL IVP SCH ×3 (00:11→11:25)
[2019-01-16] MEDS: Amiodarone Premix 360 MG/200 ML BAG IVC SCH (00:50)
[2019-01-16] MEDS: *HR* Heparin 5,000 UNIT/ML VIAL SQ SCH ×2 (05:23→17:39)
--- NOTE | 2019-01-16 06:21 | Cardiothoracic Progress Note ---
Date of Encounter: 01/16/19 Time of Encounter: 06:05 - Assessment and plan (1) CAD (coronary artery disease) Current Visit: No Status: Acute The patient remained hemodynamic stable overnight. He has begin ambulating in the hallways without difficulty. He had two episodes of atrial fibrillation/SVT which converted to normal sinus rhythm with an amiodarone drip. He will be started on oral amiodarone. The assessment and plan as outlined above was dis cussed with the patient and/or family members who expressed understanding and agreement. All questions were answered. Qualifiers: Coronary Disease-Associated Artery/Lesion type: [place] artery [place] vs. transplanted heart: [place] heart Associated angina: with stable angina Qualified Code(s): I25.118 - Atherosclerotic heart disease of [place] coronary artery with other forms of angina pectoris - Subjective Procedure(s) Performed: POD#5 S/P CABG5, PDA endarterectomy Interval history: The patient remained hemodynamically stable overnight. He was able to ambulate in the hallways yesterday without difficulty. He had two episodes of atrial fibrillation/SVT which required treatment with amiodarone. Currently he is in normal sinus rhythm. Vital Signs, Last 4 Hours Temp Pulse Resp BP Pulse Ox 01/16/19 03:46 97.9 F 72 18 131/73 94 01/16/19 03:11 14 94 Oxgyen Flow Rate Oxygen Flow Rate (LPM) 0 Clinical Data, last 8 Hours Output, Urine Amount 0 Weight 01/14/19 01/15/19 01/16/19 23:59 23:59 23:59 Weight 109.3 kg - Physical Examination General: Conversant, No Apparent Distress Neck: No JVD, Normal carotid pulses Cardiac: Reg Rate and Rhythm, Normal S1 and S2, No Murmur Lungs: Normal Breath Sounds, No Wheeze, Rales, Rhonchi Neuro: Alert and responsive, No focal deficits noted Vascular: Normal capillary refill Extremities: No Clubbing, No Cyanosis, No Edema, Normal Pulses - Labs 01/12/19 03:15 01/15/19 08:22 Lab Results, Last 24 hours 01/15/19 08:22 Sodium 137 Potassium 3.4 L Chloride 103 Carbon Dioxide 25 BUN 19 Creatinine 1.19 Glucose 133 H Calcium 9.0 Magnesium 2.5 - VTE Reasons for not Prescribing Prophylaxis: Not indicated-Anticoagulated or INR therapeutic Documentation of Mechanical Device: Graduated compression elastic hosiery Consult Discharge Plan - Plan Referrals: Walker Valenzuela MD [Partnered Physician] - Medhat Valencia MD [Primary Care Provider] -
--- NOTE | 2019-01-16 06:25 | Discharge Summary ---
Orders not resulted at time of discharge: Pending orders 01/10/19 09:12 Red Blood Cells [BBK] Routine Date of Encounter: 01/17/19 Time of Encounter: 07:11 - Discharge Diagnosis (1) CAD (coronary artery disease) Priority: Primary Status: Acute Qualifiers: Coronary Disease-Associated Artery/Lesion type: [place] artery [place] vs. transplanted heart: [place] heart Associated angina: with stable angina Qualified Code(s): I25.118 - Atherosclerotic heart disease of [place] coronary artery with other forms of angina pectoris - Hospital Course Hospital course: Mr. Varghese is a 53 year old hypertensive man with known CAD and hypercholesterolemia. His cardiac history dates back to 07/14/2016 at which time he underwent cardiac catheterization with RCA PCI. At that time he had 2 stents placed in the mid RCA for a chronic total occlusion of this vessel. He did well until the last several weeks when he began experiencing exertional, nonradiating substernal chest discomfort and generalized fatigue. He saw Dr. Jamshid Cherry for his annual cardiac evaluation and was recommended for further cardiac workup. A nuclear stress test revealed exercise ECG findings consistent with ischemia, but no perfusion defect was noted on the nuclear portion. A transthoracic echocardiogram revealed an LVEF 65% with mild concentric left ventricular hypertrophy. No significant valvular dysfunction was noted. Cardiac catheterization performed today revealed severe 3 vessel CAD and an LVEF 60%. In particular, the patient has a 70-80% proximal LAD lesion, an 80% mid LAD lesion, and severe diffuse disease in his distal LAD. The patient also has an 80-90% proximal D1 lesion, a 70% proximal LCx lesion, a 70% mid RCA in-stent restenosis, and a severely diseased mid PDA. The patient has been recommended for CABG. The patient underwent CABG 5 with PDA endarterectomy on 01/11/2019. His postoperative course was complicated by transient atrial fibrillation which converted to normal sinus rhythm with intravenous amiodarone. He was converted to oral amiodarone. The patient was ambulating in the hallways without difficulty. He was discharged home on POD #6. - Time Spent with Patient Total time spent providing and/or coordinating discharge services: - Discharge Medications Prescriptions: New Amiodarone [Cordarone] 200 mg PO DAILY #30 tablet OxyCODONE/APAP 5/325 [Percocet 5/325 MG] 1 each PO Q6HR PRN 7 Days #28 tablet PRN Reason: Severe Pain Clopidogrel [Plavix] 75 mg PO DAILY #30 tablet Continued Lisinopril [Zestril] 40 mg PO DAILY Atorvastatin Calcium [Lipitor] 80 mg PO HS #30 tab Metoprolol Succinate [Toprol Xl] 25 mg PO DAILY hydroCHLOROthiazide [Hydrochlorothiazide] 25 mg PO DAILY Aspirin 81 mg PO DAILY #30 tab.chew Home Medications: Atorvastatin Calcium [Lipitor] 80 mg PO HS #30 tab 07/14/16 [Rx] Lisinopril [Zestril] 40 mg PO DAILY 07/14/16 [History] Metoprolol Succinate [Toprol Xl] 25 mg PO DAILY 08/05/17 [History] Aspirin 81 mg PO DAILY #30 tab.chew 01/03/19 [Rx] hydroCHLOROthiazide [Hydrochlorothiazide] 25 mg PO DAILY 01/03/19 [History] Amiodarone [Cordarone] 200 mg PO DAILY #30 tablet 01/17/19 [Rx] Clopidogrel [Plavix] 75 mg PO DAILY #30 tablet 01/17/19 [Rx] OxyCODONE/APAP 5/325 [Percocet 5/325 MG] 1 each PO Q6HR PRN 7 Days #28 tablet 01/17/19 [Rx] Allergies/Adverse Reactions: Allergy/AdvReac Type Severity Reaction Status Date / Time codeine AdvReac Nausea Verified 08/05/17 10:37 Date of admission: 01/11/19 11:27 Primary care physician: Medhat Valencia MD Consults: 01/11/19 13:25 Consult to Cardiac Rehabilitation-Phase1 [CONS] Routine Comment: Reason for Consult: Post open heart Call Completed: Yes Procedure(s) Performed: 1. CABG5 (PANCHAL to D1, SVG to LAD, SVG to OM1, sequential SVG to PDA and PLV) performed 01/11/2019. 2. PDA endarterectomy performed 01/11/2019. 3. Endoscopic vein harvesting, greater saphenous vein from left lower extremity performed 01/11/2019. Discharging clinician: Walker Valenzuela Anticipated date of discharge: 01/17/19 Physical Examination Vital Signs, Last 4 Hours Temp Pulse Resp BP Pulse Ox 01/16/19 03:46 97.9 F 72 18 131/73 94 01/16/19 03:11 14 94 General: Conversant, No Apparent Distress Neck: No JVD, Normal carotid pulses Cardiac: Reg Rate and Rhythm, Normal S1 and S2, No Murmur Lungs: Normal Breath Sounds, No Wheeze, Rales, Rhonchi Neuro: Alert and responsive, No focal deficits noted Vascular: Normal capillary refill Abdomen: Soft, Non-tender Skin: No rashes noted on visualized skin Extremities: No Clubbing, No Cyanosis, No Edema, Normal Pulses - Patient Status Disposition: Home, Self-Care Condition: Good Functional capacity at discharge: independent ambulation Overall status at discharge: patient is progressing back to baseline - Discharge Instructions Follow Up With: Walker Valenzuela MD [Partnered Physician] - Medhat Valencia MD [Primary Care Provider] - - Diet and Activity Activity: sternal precautions, no driving for four weeks, no lifting greater than 10 pounds for eight weeks Diet: low fat, low cholesterol [facility] Aspirin Cont/Prescribed at DC: Yes Beta Wing Cont/Prescribed at DC: Yes Statin Cont/Prescribed at DC: Yes EMILEE/ARB Cont/Prescribed at DC: Yes - VTE Reasons for not Prescribing Prophylaxis: Not indicated-Anticoagulated or INR therapeutic Documentation of Mechanical Device: Graduated compression elastic hosiery
[2019-01-16] MEDS: Insulin LISPRO 300 UNITS/3 ML VIAL SQ SCH ×4 (09:55→22:00)
[2019-01-16] MEDS: Pantoprazole 40 MG VIAL IVP SCH (09:57)
[2019-01-16] MEDS: Aspirin Enteric Coated 81 MG Tablet PO SCH (09:57)
[2019-01-16] MEDS: Chlorhexidine Rinse 15 ML MOUTHWASH MM SCH ×2 (09:57→21:58)
[2019-01-16] MEDS: *HR* Amiodarone 200 MG TABLET PO SCH (09:57)
[2019-01-16] MEDS: Docusate Oral Soln 100 MG/10 ML UDC PO SCH ×2 (09:57→21:58)
[2019-01-16] MEDS: *HR* OxyCODONE/APAP 5/325 TABLET PO PRN (21:58)
[2019-01-17] MEDS: *HR* Heparin 5,000 UNIT/ML VIAL SQ SCH (05:46)
[2019-01-17 07:23] VITALS: BP 161/86
[2019-01-17] MEDS: Insulin LISPRO 300 UNITS/3 ML VIAL SQ SCH (07:25)
[2019-01-17] MEDS: *HR* Amiodarone 200 MG TABLET PO SCH (07:27)
[2019-01-17] MEDS: Aspirin Enteric Coated 81 MG Tablet PO SCH (07:27)
[2019-01-17] MEDS: Chlorhexidine Rinse 15 ML MOUTHWASH MM SCH (07:27)
[2019-01-17] MEDS: Docusate Oral Soln 100 MG/10 ML UDC PO SCH (07:27)
== END 2019-01-17 11:29 | disposition home or self-care (01) | DRG 229 ==
LOC: SAMDAY 06:46 → ICNU 11:27 → 2NNU 01-13 17:44
PROVIDERS: ADMIT Thoracic Surgery (Cardiothoracic Vascular Surgery); ATTEND Thoracic Surgery (Cardiothoracic Vascular Surgery)